=== PATIENT | male | born 1995 | race Two or more races ===

== ENCOUNTER 2022-09-15 06:38 | Emergency (ER) | payer OTHER ==
[~2022-09-15] VITALS: Ht 182.9 cm; Wt 88.5 kg
[2022-09-15] MEDS ORDERED: AMOX-CLAV 875-1 EACH PO (10:09)
== END 2022-09-15 10:28 | disposition home or self-care (01) ==
LOC: ER 06:38
DX: H66.92 Otitis media, unspecified, left ear (principal); Z20.822 Contact with and (suspected) exposure to COVID-19

== ENCOUNTER 2022-12-09 09:41 | Emergency (ER) | payer OTHER ==
[~2022-12-09] VITALS: Ht 182.9 cm; Wt 92.1 kg
[~2022-12-09 09:41] MED LIST: AMOX-CLAV 875-1 EACH PO
[2022-12-09 11:05] LABS: HEMATOCRIT 44.1 % (39.0-48.0); HEMOGLOBIN 15.3 g/dL (13-16.00); MEAN CELL VOLUME 83.9 fL (80.0-100.00); MEAN CORPUSCULAR HEMOGLOBIN 29.1 pg (27.00-32.0); MEAN CORPUSCULAR HGB CONC 34.6 g/dl (32.0-36.0); PLATELET COUNT 259 K/uL (150-450); RED BLOOD COUNT 5.26 M/uL (4.00-6.00); RED CELL DISTRIBUTION WIDTH 14.1 % (11.5-14.5)
== END 2022-12-09 12:10 | disposition home or self-care (01) ==
LOC: ER 09:41
PROVIDERS: General Practice
DX: B34.8 Other viral infections of unspecified site (principal); Z20.822 Contact with and (suspected) exposure to COVID-19

== ENCOUNTER 2023-06-15 12:04 | Emergency (ER) | payer OTHER ==
[~2023-06-15] VITALS: Ht 182.9 cm; Wt 86.2 kg
== END 2023-06-15 18:32 | disposition home or self-care (01) ==
LOC: ER 12:04
DX: S60.052A Contusion of left little finger without damage to nail, initial encounter (principal); X58.XXXA Exposure to other specified factors, initial encounter; Y93.75 Activity, martial arts; Y92.89 Other specified places as the place of occurrence of the external cause; Y99.8 Other external cause status